=== PATIENT | female | born 1970 | race African-American/Black ===

== ENCOUNTER 2016-06-12 01:37 | Emergency (ER) | payer SELFPAY ==
[~2016-06-12] VITALS: Ht 165.1 cm; Wt 117.0 kg
[2016-06-12 01:44] VITALS: BP 154/87
[2016-06-12] MEDS ORDERED: AMOX1TAB61 PO (01:59)
--- NOTE | 2016-06-12 01:59 | PHYS DOC ---
Past Medical History Past Medical History: No Pertinent History Past Surgical History: Alcohol Use: Occasionally Drug Use: None Adult General Chief Complaint Chief Complaint: DENTAL PROBLEM HPI HPI Patient is a 45 year old female who presents with left lower jaw pain and swelling over the past few days. Notes minimal achy pain. Worried mostly about dental infection. States this occurred 1 month ago and improved with abx. She denies fever or chills, nausea or vomiting, difficulty breathing, difficulty swallowing, difficulty opening mouth, voice changes, sore throat, neck pain. Review of Systems Review of Systems Constitutional: Denies fever or chills [] Eyes: Denies change in visual acuity, redness, or eye pain [] HENT: Denies nasal congestion or sore throat [] Respiratory: Denies cough or shortness of breath [] Cardiovascular: No additional information not addressed in HPI [] GI: Denies abdominal pain, nausea, vomiting, bloody stools or diarrhea [] : Denies dysuria or hematuria [] Musculoskeletal: Denies back pain or joint pain [] Integument: Denies rash or skin lesions [] Neurologic: Denies headache, focal weakness or sensory changes [] Endocrine: Denies polyuria or polydipsia [] Current Medications Current Medications Current Medications Medications (Trade) Dose Ordered Sig/Nataly Start Time Stop Time Status Last Admin Dose Admin Amoxicillin/ Clavulanate Potassium (Augmentin 875/ 125mg) 1 tab 1X ONCE 06/12/16 02:00 06/12/16 02:01 DC 06/12/16 02:14 1 TAB Allergies Allergies Allergies Coded Allergies Type Severity Reaction Last Updated Verified No Known Drug Allergies 04/11/13 No Physical Exam Physical Exam Constitutional: Well developed, well nourished, no acute distress, non-toxic appearance. [] HENT: Normocephalic, atraumatic, bilateral external ears normal, oropharynx moist, no oral exudates, nose normal. Has some left jaw swelling without induration or fluctuance or discoloration; Has some gumline tenderness to left lower jaw in area of molars that have caries; No gumline swelling or discoloration; No stridor, change of voice, tongue swelling, trismus, or drooling; Uvula is midline and floor is nontender[] Eyes: PERRLA, EOMI. [] Neck: Normal range of motion, no tenderness, supple. [] Cardiovascular:Heart rate regular rhythm [] Lungs & Thorax: Bilateral breath sounds clear to auscultation [] Abdomen: Bowel sounds normal, soft, no tenderness. [] Skin: Warm, dry, no erythema, no rash. [] Back: Normal range of motion. [] Extremities: No tenderness, ROM intact. [] Neurologic: Alert and oriented X 3, normal motor function, normal sensory function, no focal deficits noted. [] Psychologic: Affect normal, judgement normal, mood normal. [] Current Patient Data Vital Signs Vital Signs Date Time Temp Pulse Resp B/P (MAP) Pulse Ox O2 Delivery O2 Flow Rate FiO2 06/12/16 01:44 98.5 87 20 97 Room Air 98.5 Course & Med Decision Making Course & Med Decision Making Discussed she needs to see a dentist emergently. Placed on antibiotics. Return precautions given. She understands and agrees with plan. Dragon Disclaimer Dragon Disclaimer This electronic medical record was generated, in whole or in part, using a voice recognition dictation system. Departure Departure Impression: Primary Impression: Dental abscess Disposition: HOME, SELF-CARE Condition: STABLE Referrals: CARLA SHEPPARD MD (PCP) Patient Instructions: Dental Abscess Additional Instructions: Take Augmentin to help with dental abscess. You must see a dentist within 3 days to get this fixed. Return for any concerns. Scripts Amoxicillin/Potassium Clav (AUGMENTIN 875-125 TABLET) 1 Each Tablet 1 TAB PO BID, #14 TAB Prov: Jackelyn SILVA MD 06/12/16 Jackelyn SILVA MD June 12, 2016 01:59
[2016-06-12] MEDS ORDERED: AMOXICILLIN/K CLAV 875/125MG TABLET. PO ONE (02:00)
== END 2016-06-12 02:16 | disposition home or self-care (01) ==
LOC: ER 01:37
DX: K04.7 Periapical abscess without sinus (principal)
CPT/HCPCS: 99283

== ENCOUNTER 2017-05-17 17:46 | Emergency (ER) | payer OTHER | END 2017-05-17 21:23 | disposition home or self-care (01) | LOC: ER 17:46 | DX: M79.672 Pain in left foot (principal) | CPT/HCPCS: 93971; 99284-25 ==

== ENCOUNTER 2019-03-06 04:07 | Emergency (ER) | payer SELFPAY ==
[~2019-03-06] VITALS: Ht 162.6 cm; Wt 112.6 kg
[~2019-03-06 04:07] MED LIST: AMOX1TAB61 PO; IBUP-1007 PO
[2019-03-06] MEDS ORDERED: cloNIDine HCL 0.1 MG TABLET PO ONE (05:00)
[2019-03-06] MEDS ORDERED: ACETAMINOPHEN 500 MG TABLET PO ONE (05:15)
[2019-03-06] MEDS ORDERED: AMLO10TA4 PO (05:21)
--- NOTE | 2019-03-06 05:22 | PHYS DOC ---
Past Medical History Past Medical History: Hypertension Past Surgical History: Additional Past Surgical Histo: C SECTION X 3 Alcohol Use: Occasionally Drug Use: None Adult General Chief Complaint Chief Complaint: HYPERTENSION HPI HPI Patient is a 48 year [place] female with history of hypertension his been off of blood pressure medications for greater than 1 year who presents with headache. Patient headache described as mild to moderate. The worst headache of the patient's life. Patient has history of frequent headaches she typically treats with ibuprofen. Patient is not taking any medications for her headache prior to coming to the emergency department. She would like to least restarted on her previous blood pressure medications. Blood pressure noted. Elevated 180s over 95. Denies chest pain palpitations, shortness of breath. No extremity weakness or loss of sensation. No other acute symptoms or complaints. [] Review of Systems Review of Systems Review of symptoms as per history of present illness. All other review symptoms are negative All other systems were reviewed and found to be within normal limits, except as documented in this note. Current Medications Current Medications Current Medications Medications (Trade) Dose Ordered Sig/Nataly Start Time Stop Time Status Last Admin Dose Admin Acetaminophen (Tylenol) 1,000 mg 1X ONCE 03/06/19 05:15 03/06/19 05:16 Clonidine HCl (Catapres) 0.1 mg 1X ONCE 03/06/19 05:00 03/06/19 05:01 DC Allergies Allergies Allergies Coded Allergies Type Severity Reaction Last Updated Verified No Known Drug Allergies 04/11/13 No Physical Exam Physical Exam Constitutional: Well developed, well nourished, no acute distress, non-toxic appearance. [] HENT: Normocephalic, atraumatic, bilateral external ears normal, oropharynx moist, nose normal. [] Eyes: PERRLA, EOMI, conjunctiva normal, no discharge. [] Neck: Normal range of motion, no tenderness. [] Cardiovascular:Heart rate regular rhythm, no murmur. [] Lungs & Thorax: Bilateral breath sounds clear to auscultation [] Abdomen: Bowel sounds normal, soft, no tenderness. [] Skin: Warm. [] Back: No tenderness. [] Extremities: No tenderness, no edema. [] Neurologic: Alert and oriented X 3, normal motor function, normal sensory function, no focal deficits noted. [] Psychologic: Affect normal, judgement normal, mood normal. [] Current Patient Data Vital Signs Vital Signs Date Time Temp Pulse Resp B/P (MAP) Pulse Ox O2 Delivery O2 Flow Rate FiO2 03/06/19 04:42 98.6 64 20 177/96 (123) 100 Room Air 98.6 EKG EKG [] Radiology/Procedures Radiology/Procedures [] Course & Med Decision Making Course & Med Decision Making Pertinent Labs and Imaging studies reviewed. (See chart for details) [Headache treated and blood pressure addressed. No focal neurologic deficits on exam. This is not the worst headache of the patient's life. Will prescribe blood pressure medications with instructions to follow-up with PCP for management of hypertension.] Dragon Disclaimer Dragon Disclaimer This electronic medical record was generated, in whole or in part, using a voice recognition dictation system. Departure Departure Impression: Primary Impression: Hypertension Additional Impression: Headache Disposition: 01 HOME, SELF-CARE Condition: STABLE Referrals: PINO OVERTON (PCP) Patient Instructions: General Headache Without Cause, Hypertension Additional Instructions: Please home and rest. Take Tylenol or ibuprofen for pain and newly prescribed blood pressure as directed. Follow up with your PCP in 2-3 days for reevaluation. Return to the ED if new or worsening symptoms.. Scripts Amlodipine Besylate (NORVASC) 10 Mg Tablet 10 MG PO DAILY, #30 TAB Prov: MONAE MEDRANO DO 03/06/19 Problem Qualifiers MONAE MEDRANO DO Mar 06, 2019 05:22
[2019-03-06 05:45] VITALS: BP 172/77
[2019-03-06] MEDS ORDERED: FAMOTIDINE 20 MG/2 ML VIAL IVP ONE (05:45)
[2019-03-06] MEDS ORDERED: IV NORMAL SALINE 1000ML BAG 1,000 ML IV ONE (05:45)
[2019-03-06] MEDS ORDERED: ONDANSETRON PF 4 MG/2 ML VIAL. IVP ONE (05:45)
== END 2019-03-06 05:48 | disposition home or self-care (01) ==
LOC: ER 04:07
DX: I10 Essential (primary) hypertension (principal); R51 Headache; Z98.890 Other specified postprocedural states
CPT/HCPCS: 81025; 99283

== ENCOUNTER 2020-07-03 14:27 | Emergency (ER) | payer OTHER ==
[~2020-07-03] VITALS: Ht 165.1 cm; Wt 131.3 kg
[~2020-07-03 14:27] MED LIST changes: +AMLO10TA4 PO
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
[2020-07-03] MEDS ORDERED: CYCL10TA2 PO (16:19)
[2020-07-03] MEDS ORDERED: NAPR500T8 PO (16:19)
[2020-07-03 16:36] VITALS: BP 160/78
== END 2020-07-03 16:36 | disposition home or self-care (01) ==
LOC: ER 14:27
DX: M25.561 Pain in right knee (principal); M25.512 Pain in left shoulder; M54.5 Low back pain; I10 Essential (primary) hypertension; Z98.890 Other specified postprocedural states; V43.52XA Car driver injured in collision with other type car in traffic accident, initial encounter; Y93.I9 Activity, other involving external motion; Y92.89 Other specified places as the place of occurrence of the external cause; Y99.8 Other external cause status
CPT/HCPCS: 72100; 73030; 73564; 81025; 99284

== ENCOUNTER 2021-04-09 11:39 | Emergency (ER) | payer OTHER ==
[~2021-04-09] VITALS: Ht 157.5 cm; Wt 114.0 kg
[~2021-04-09 11:39] MED LIST changes: +CYCL10TA19 PO; +NAPR500T8 PO
--- NOTE | 2021-04-09 11:55 | PHYS DOC ---
Past Medical History Past Medical History: Hypertension, Other Additional Past Medical Histor: COVID-/MAY 2020 Past Surgical History: Additional Past Surgical Histo: C SECTION X 3 Smoking Status: Never Smoker Alcohol Use: Occasionally Drug Use: None General Adult EDM: Chief Complaint: ABDOMINAL PAIN HPI: HPI: Patient is a 50 year old female who presents with this morning began having right upper quadrant sided dull pain that is constant. She rates her pain 7 out of 10. She states that she just got put back on her high blood pressure medication which is losartan, HCTZ and metoprolol. She states that she had not been taking them for the last 3 months and she was supposed to. She has a history of hypertension, COVID-19 in 2020 and 3 C-sections. She denies smoking. Patient denies chest pain, shortness of breath, nausea, vomiting, diarrhea, urinary symptoms, back pain, headache, dizziness, numbness or tingling, focal weakness, vision change, fever, cough. Review of Systems: Review of Systems: Constitutional: Denies fever or chills. [] Eyes: Denies change in visual acuity. [] HENT: Denies nasal congestion or sore throat. [] Respiratory: Denies cough or shortness of breath. [] Cardiovascular: Denies chest pain or edema. [] GI: + Right upper abdominal pain, denies nausea, vomiting, bloody stools or diarrhea. [] : Denies dysuria. [] Musculoskeletal: Denies back pain or joint pain. [] Integument: Denies rash. [] Neurologic: Denies headache, focal weakness or sensory changes. [] Endocrine: Denies polyuria or polydipsia. [] Lymphatic: Denies swollen glands. [] Psychiatric: Denies depression or anxiety. [] Heart Score: C/O Chest Pain: No Allergies: Allergies: Allergies Coded Allergies Type Severity Reaction Last Updated Verified No Known Drug Allergies 04/11/13 No Physical Exam: PE: Constitutional: Well developed, well nourished, no acute distress, non-toxic appearance. [] HENT: Normocephalic, atraumatic, bilateral external ears normal, oropharynx moist, no oral exudates, nose normal. [] Eyes: PERRLA, EOMI, conjunctiva normal, no discharge. [] Neck: Normal range of motion, no tenderness, supple, no stridor. [] Cardiovascular:Heart rate regular rhythm, no murmur [] Lungs & Thorax: Bilateral breath sounds clear to auscultation [] Abdomen: Bowel sounds normal, soft, right upper quadrant tenderness, no masses, no pulsatile masses. [] Skin: Warm, dry, no erythema, no rash. [] Back: No tenderness, no CVA tenderness. [] Extremities: No tenderness, no cyanosis, no clubbing, ROM intact, no edema. [] Neurologic: Alert and oriented X 3, normal motor function, normal sensory function, no focal deficits noted. [] Psychologic: Affect normal, judgement normal, mood normal. [] EKG: EK and read by Dr. Taylor is a sinus rhythm and no STEMI Radiology/Procedures: Radiology/Procedures: [] Impression: [address] [id number] IMAGING REPORT Signed PATIENT: ALLEN PALACIOS ACCOUNT: [id number] : 1970 LOCATION: ER AGE: 50 SEX: F EXAM STATUS: PRE ER ORD. PHYSICIAN: STEPHEN SILVA APRN REASON: upper abd pain PROCEDURE: PORTABLE CHEST 1V XR CHEST 1V History: Upper abdominal pain. Comparison: None. Technique: AP radiograph of the chest. Findings: The lungs are adequately and symmetrically inflated. No airspace consolidation, pleural effusion or pneumothorax. The cardiomediastinal silhouette and pulmonary vasculature are within normal limits. No acute osseous abnormality. Marginal osteophytes in the thoracic spine. Soft tissues are unremarkable. Impression: 1. No acute cardiopulmonary process. Electronically signed by: Yovani Carvajal MD (04/09/2021 12:24 PM) [id number] DICTATED and SIGNED BY: YOVANI CARVAJAL MD DATE: 04/09/21 [id number] [place], [place] [id number] IMAGING REPORT Signed PATIENT: ALLEN PALACIOS ACCOUNT: [id number] : 1970 LOCATION: ER AGE: 50 SEX: F EXAM STATUS: REG ER ORD. PHYSICIAN: STEPHEN SILVA APRN REASON: RUQ PAIN THAT IS A DULL ACHE PROCEDURE: CT ABD PELV W/ IV CONTRST ONLY CT ABDOMEN+PELVIS W History: Right upper quadrant pain. Comparison: None. Technique: CT of the abdomen and pelvis with intravenous contrast. Findings: The lung bases are clear. The liver, gallbladder, pancreas, spleen, adrenals, and kidneys are unremarkable. The stomach and small bowel are unremarkable. The appendix is normal. Normal colon. Bladder, uterus and adnexa are within normal limits. There is no abdominal pelvic free fluid or free air. No adenopathy. Small fat-containing umbilical hernia. Degenerative disease of the lumbar spine at L4-L5 and L5-S1. Impression: 1. No acute findings in the abdomen and pelvis. ------ Exposure: One or more of the following individualized dose reduction techniques were utilized for this examination: 1. Automated exposure control 2. Adjustment of the mA and/or kV according to patient size 3. Use of iterative reconstruction technique. Electronically signed by: Yovani Carvajal MD (04/09/2021 3:04 PM) [id number] DICTATED and SIGNED BY: YOVANI CARVAJAL MD DATE: 04/09/21 [id number] Course & Med Decision Making: Course & Med Decision Making Pertinent Labs and Imaging studies reviewed. (See chart for details) See HPI. Alert and oriented x4. Speaks in full clear sentences. Ambulatory with a steady gait. No peripheral edema. Abdomen is soft and slightly tender t o the right upper quadrant area. No CVA tenderness. No calf tenderness. No recent surgery or hormone use. No recent travel. Vital signs are within normal limits. No chest pain with breathing. Well's score 0. Blood work unremarkable. Chest x-ray and CT abdomen pelvis showed no acute findings. Patient is stable and in no distress. Patient to follow-up with her primary care doctor and continue taking her medications as prescribed. [] Dragon Disclaimer: Dragon Disclaimer: This electronic medical record was generated, in whole or in part, using a voice recognition dictation system. Departure Departure Impression: Primary Impression: Abdominal pain Qualified Codes: R10.11 - Right upper quadrant pain Disposition: HOME / SELF CARE / HOMELESS Condition: STABLE Referrals: PINO OVERTON (PCP) Patient Instructions: Abdominal Pain (Nonspecific) Additional Instructions: Continue taking all your medications as they are prescribed. Follow-up with your primary care physician. Drink plenty of fluids. If you begin vomiting, running a fever, having chest pain or shortness of breath return to the emergency room. STEPHEN SILVA APRN Apr 09, 2021 11:55
[2021-04-09] MEDS ORDERED: IV NORMAL SALINE 1000ML BAG 1,000 ML IV ONE (12:00)
[2021-04-09 12:21] LABS: BACTERIA,URINE 0 /HPF (0-FEW); BILIRUBIN,URINE NEGATIVE (NEG); CLARITY,URINE CLEAR; COLOR,URINE YELLOW; NITRITE,URINE NEGATIVE (NEG); PROTEIN,URINE NEGATIVE (NEG-TRACE); RBC,URINE 0 /HPF (0-2); UROBILINOGEN,URINE 0.2 mg/dL (0.2 mg/dL); WBC,URINE 0 /HPF (0-4)
--- NOTE | 2021-04-09 12:24 | EKG ---
[facility] [address] [place] [address] Test Date: 2021-04-09 Test Time: 11:45:00 Pat Name: ALLEN PALACIOS Department: Room: Gender: F Otorhinolaryngologist: [facility] : 1970 Requested By: STEPHEN SILVA Order Number: [id number] Reading MD: Ottoniel Saavedra MD Measurements Intervals [place] Rate: 64 P: 8 DC: 182 QRS: -26 QRSD: 92 T: 34 QT: 432 QTc: 445 Interpretive Statements SINUS RHYTHM Electronically Signed On 04-13-2021 11:13:56 [employer] SERVICE AGENCY DIRECTOR by Ottoniel Saavedra MD
--- NOTE | 2021-04-09 12:26 | RAD ---
XR CHEST 1V History: Upper abdominal pain. Comparison: None. Technique: AP radiograph of the chest. Findings: The lungs are adequately and symmetrically inflated. No airspace consolidation, pleural effusion or p neumothorax. The cardiomediastinal silhouette and pulmonary vasculature are within normal limits. No acute osseous abnormality. Marginal osteophytes in the thoracic spine. Soft tissues are unremarkable. Impression: 1. No acute cardiopulmonary process. Electronically signed by: Yovani Jurado MD (04/09/2021 12:24 PM) [id number]
[2021-04-09 12:33] LABS: BARBITURATES NEG (NEG); BENZODIAZEPINES NEG (NEG); CANNABINOIDS NEG (NEG); COCAINE NEG (NEG); METHADONE NEG (NEG); OPIATES NEG (NEG); PHENCYCLIDINE NEG (NEG)
[2021-04-09 12:36] LABS: AMPHETAMINE/METHAMPHETAMINE NEG (NEG)
[2021-04-09 13:17] LABS: BASO % 1 % (0-3); EOS % 1 % (0-3); HEMATOCRIT 43.3 % (36.0-47.0); HEMOGLOBIN 13.5 g/dL (12.0-15.5); LYMPH # 1.7 x10^3/uL (1.0-4.8); LYMPH % 39 % (24-48); MEAN CORPUSCULAR HEMOGLOBIN 22 pg (25-35); MEAN CORPUSCULAR HGB CONC 31 g/dL (31-37); MEAN CORPUSCULAR VOLUME 72 fL (79-100); MONO # 0.3 x10^3/uL (0.0-1.1); MONO % 8 % (0-9); NEUT # 2.2 x10^3/uL (1.8-7.7); NEUT % 51 % (31-73); PLATELET COUNT 227 x10^3/uL (140-400); RED BLOOD COUNT 6.04 x10^6/uL (3.50-5.40); RED CELL DISTRIBUTION WIDTH 16.4 % (11.5-14.5); WHITE BLOOD COUNT 4.3 x10^3/uL (4.0-11.0)
[2021-04-09 14:00] LABS: PLT ESTIMATE ADEQUATE (ADEQUATE)
[2021-04-09 14:01] LABS: HYPOCHROMIA SLIGHT; MICROCYTOSIS SLIGHT
[2021-04-09 14:32] LABS: CALCIUM 9.4 mg/dL (8.5-10.1); CREATININE 0.8 mg/dL (0.6-1.0); GFR 91.9; POTASSIUM 4.2 mmol/L (3.5-5.1)
[2021-04-09 14:39] LABS: ALBUMIN 3.8 g/dL (3.4-5.0); ALBUMIN/GLOBULIN RATIO 0.7 (1.0-1.7); MAGNESIUM 2.1 mg/dL (1.8-2.4); TOTAL BILIRUBIN 0.6 mg/dL (0.2-1.0); TOTAL PROTEIN 9.2 g/dL (6.4-8.2)
[2021-04-09] MEDS ORDERED: IOHEXOL 300 MG/ML 100ML VIAL. IV ONE (14:45)
[2021-04-09] MEDS ORDERED: CONTRAST GIVEN. MC PRN (15:00)
--- NOTE | 2021-04-09 15:06 | RAD ---
CT ABDOMEN+PELVIS W History: Right upper quadrant pain. Comparison: None. Technique: CT of the abdomen and pelvis with intravenous contrast. Findings: The lung bases are clear. The liver, gallbladder, pancreas, spleen, adrenals, and kidneys are unremar kable. The stomach and small bowel are unremarkable. The appendix is normal. Normal colon. Bladder, uterus a nd adnexa are within normal limits. There is no abdominal pelvic free fluid or free air. No adenopath y. Small fat-containing umbilical hernia. Degenerative disease of the lumbar spine at L4-L5 and L5-S1. Impression: 1. No acute findings in the abdomen and pelvis. ------ Exposure: One or more of the following individualized dose reduction techniques were utilized for thi s examination: 1. Automated exposure control 2. Adjustment of the mA and/or kV according to patient size 3. Use of iterative reconstruction technique. Electronically signed by: Yovani Jurado MD (04/09/2021 3:04 PM) [id number]
[2021-04-09 15:37] VITALS: BP 144/65
== END 2021-04-09 15:50 | disposition home or self-care (01) ==
LOC: ER 11:39
DX: R10.11 Right upper quadrant pain (principal); I10 Essential (primary) hypertension
CPT/HCPCS: 36415; 71045; 74177; 80053; 80307; 81001; 81025; 83690; 83735; 83880; 84484; 85025; 93005; 96360; 99285; J7030; Q9967